=== PATIENT | female | born 2000 | race Caucasian/White ===

== ENCOUNTER 2022-09-21 08:14 | Day surgery (SDC) | payer MEDICAID ==
[2022-09-21] MEDS ORDERED: Indocyanine Green 25 MG SDV IV ONE (08:45)
[2022-09-21] MEDS ORDERED: Acetaminophen 500 MG Tab PO ONE (08:45)
[2022-09-21] MEDS: Sodium Chloride 0.9% 1,000 ML IV SCH ×2 (08:47→17:11)
[2022-09-21] MEDS ORDERED: metroNIDAZOLE/Normal Saline 500 MG in Premix Bag 1 BAG IV ONE (09:00)
[2022-09-21] MEDS ORDERED: fentaNYL 250 MCG/5 ML SDV ONE (09:08)
[2022-09-21] MEDS ORDERED: Dexamethasone 4 MG/ML SDV ONE (09:09)
[2022-09-21] MEDS ORDERED: Succinylcholine 200 MG/10 ML MDV ONE (09:09)
[2022-09-21] MEDS ORDERED: Rocuronium 50 MG/5 ML Vial ONE (09:09)
[2022-09-21] MEDS ORDERED: Propofol 200 MG/20 ML SDV ONE (09:09)
[2022-09-21] MEDS ORDERED: Glycopyrrolate 0.2 MG/ML 5 ML MDV ONE (09:09)
[2022-09-21] MEDS ORDERED: Neostigmine Methylsulfate 1 MG/ML 5 ML Syringe ONE (09:09)
[2022-09-21] MEDS ORDERED: Ondansetron 4 MG/2 ML SDV ONE (09:09)
[2022-09-21] MEDS ORDERED: cefTRIAXone 2 GM in Sodium Chloride 0.9% 50 ML IV ONE (10:00)
[2022-09-21] MEDS: Bupivacaine 0.5%/EPINEPHrine 1:200,000 50 ML MDV ONE ×2 (10:52→11:30)
[2022-09-21] MEDS ORDERED: fentaNYL 100 MCG/2 ML SDV ONE (11:25)
[2022-09-21] MEDS ORDERED: Ondansetron 4 MG/2 ML SDV IVPUSH PRN ×2 (12:39→21:15)
[2022-09-21] MEDS ORDERED: Ketorolac 15 MG/ML SDV IVPUSH ONE (13:00)
[2022-09-21] MEDS: HYDROmorphone 0.5 MG/0.5 ML Syringe IVPUSH PRN ×2 (13:21→19:35)
[2022-09-21] MEDS: Acetaminophen/HYDROcodone 325-5 MG Tab PO PRN ×3 (14:35→23:26)
[2022-09-21] MEDS: Ketorolac 15 MG/ML SDV IVPUSH SCH (21:13)
[2022-09-21] MEDS ORDERED: Scopolamine 1.5 MG Transdermal Patch TRDERM PRN (21:15)
[2022-09-22] MEDS: Ketorolac 15 MG/ML SDV IVPUSH SCH ×3 (03:53→15:01)
[2022-09-22 04:54] LABS: HEMATOCRIT 34.8 % (34.3-46.0); HEMOGLOBIN 11.7 g/dL (11.2-15.5); MEAN CORPUSCULAR HEMOGLOBIN 29.7 pg (31.6-35.5); MEAN CORPUSCULAR HGB CONC 33.6 g/dL (31.6-35.5); MEAN CORPUSCULAR VOLUME 88.3 fL (81.4-99.0); RED BLOOD CELL COUNT 3.94 M/uL (3.77-5.24); WHITE BLOOD CELL COUNT,WBC 11.8 K/uL (3.2-11.0)
[2022-09-22 05:14] LABS: A/G RATIO 1.1 (1.2-2.2); ALANINE AMINOTRANSFERASE,ALT 26 U/L (12-78); ALBUMIN 3.2 g/dL (3.4-5.0); ALKALINE PHOSPHATASE 59 U/L (46-116); ASPARTATE AMNIOTRANSFERASE,AST 22 U/L (15-37); BILIRUBIN TOTAL 0.7 mg/dL (0.2-1.0); BLOOD UREA NITROGEN,BUN 7 mg/dL (7-18); CALCIUM 8.3 mg/dL (8.5-10.1); CARBON DIOXIDE,CO2 25 mmol/L (21-32); CHLORIDE,CL 105 mmol/L (100-108); CREATININE 0.7 mg/dL (0.6-1.0); EST CRCL DRUG DOSING (CG) 107.93 mL/min; ESTIMATED GFR 125 mL/min (>60); GLUCOSE RANDOM 89 mg/dL (74-106); POTASSIUM,K 3.5 mmol/L (3.6-5.2); PROTEIN TOTAL,TP 6.1 g/dL (6.4-8.2); SODIUM,NA 141 mmol/L (140-148)
[2022-09-22 05:31] LABS: MAGNESIUM 1.9 mg/dL (1.8-2.4); PHOSPHORUS 3.5 mg/dL (2.5-4.9)
[2022-09-22 05:32] LABS: ANION GAP 14.5 mmol/L (5.0-14.0)
[2022-09-22] MEDS: Acetaminophen/HYDROcodone 325-5 MG Tab PO PRN ×3 (06:17→15:03)
[2022-09-22] MEDS ORDERED: Cyclobenzaprine 10 MG Tab PO PRN (08:28)
[2022-09-22] MEDS ORDERED: Potassium Chloride 10 MEQ in Premix Bag 1 BAG IV ONE (09:00)
== END 2022-09-22 16:29 | disposition home or self-care (01) ==
LOC: JP.SDS 08:14 → JP.MS 12:39 → JP.SDS 09-22 16:29
PROVIDERS: ATTEND Student in an Organized Health Care Education/Training Program
DX: K80.10 Calculus of gallbladder with chronic cholecystitis without obstruction (principal); E87.6 Hypokalemia; Z88.0 Allergy status to penicillin; Z88.1 Allergy status to other antibiotic agents; Z88.8 Allergy status to other drugs, medicaments and biological substances
CPT/HCPCS: 36415; 47562; 80053; 81025; 83735; 84100; 85027; 87635; 88304; A9270; J0696; J1100; J1170; J1885; J2405; J2704; J2710; J3010; J3480; J3490; J7030; J0330; U0002